=== PATIENT | male | born 1960 | race Caucasian/White ===

== ENCOUNTER 2017-12-28 03:36 | Inpatient (IN) | payer OTHER ==
[~2017-12-28] VITALS: Ht 175.3 cm; Wt 86.2 kg
--- NOTE | ~2017-12-28 | PROC ---
[address] [address] PROCEDURE REPORT Name: BLAKE AMBROCIO Room: [address] IN .R.#: [id number] Admission: 12/28/17 Attend Phys: Kuldip Hyman MD Discharge: 12/29/17 Date of : 64 Report #: [id number] THIS REPORT FOR: //name// For GI report, please see the Provation report in [employer] 7 content. By: [id number] Records Staff KAITLYN /MINERVA
[~2017-12-28 03:36] MED LIST: ACETAMINOPHEN PO; B COMPLEX WITH1 EACH PO; CIPROFLOXACIN500 M1 PO; CYMBALTA60 MG PO; ENDOCET 10-3251 EACH PO; FLEXERIL PO; IBUPROFEN 800800 M1 PO; LAXATIVE5 M1 PO; LOTREL 10-20 M1 EACH PO; LOTREL 5-10 MG1 EACH PO; LOTREL 5-20 MG1 EACH PO; MEDROLDOSEPACK PO; METFORMIN HCL500 MG PO; METHADONE HCL 110 M1 PO; METHADONE HCL5 MG PO; NORCO 5-325 TA1 EACH PO; OXYCODONE HCL PO; OXYCODONE HCL5 M1 PO; OXYCODONE-ACET1 EAC2 PO; PERCOCET 5-3251 EACH PO; SENOKOT-S1 TA1 GT; WELLBUTRIN 75 M75 M1 PO; ZOCOR40 MG PO
[2017-12-28 03:37] VITALS: BP 126/78
[2017-12-28 03:59] LABS: HEMATOCRIT 44.7 % (42.0-52.0); HEMOGLOBIN 14.8 gm/dL (14.0-18.0); MCH 30.8 pg (26.0-34.0); MCHC 33.2 g/dL (28.0-37.0); MCV 92.8 fL (80.0-100.0); MPV 7.6 fl. (7.2-11.1); NUCLEATED RBCS 0 /100WBC; PLATELET COUNT* 279 thou/uL (150-400); RBC 4.82 mil/uL (4.50-6.00); RDW-CV 12.7 % (10.5-14.5); WBC 18.9 thou/uL (4.0-11.0)
[2017-12-28 04:11] LABS: CALCIUM 9.2 mg/dL (8.5-10.1); POTASSIUM 3.9 mmol/L (3.5-5.1)
[2017-12-28 04:21] LABS: ALBUMIN 3.4 g/dL (3.4-5.0); TOTAL BILIRUBIN 0.7 mg/dL (<0.1-1.0); TOTAL PROTEIN 6.6 g/dL (6.4-8.2)
[2017-12-28 05:29] LABS: URINE BILIRUBIN NEGATIVE (Negative); URINE BLOOD NEGATIVE (Negative); URINE CLARITY CLEAR; URINE COLOR YELLOW; URINE GLUCOSE-RANDOM NEGATIVE (Negative); URINE KETONES TRACE (Negative); URINE LEUKOCYTES-REFLEX NEGATIVE (Negative); URINE NITRITE-REFLEX NEGATIVE (Negative); URINE PROTEIN 1+ (Negative); URINE UROBILINOGEN 0.2 E.U./dl (0.2-1.0)
[2017-12-28 06:03] LABS: ABSOLUTE EOSINOPHILS 0.2 thou/uL (0.0-0.7); ABSOLUTE LYMPHOCYTES 1.7 thou/uL (0.8-5.3); ABSOLUTE MONOCYTES 1.1 thou/uL (0.0-1.2); ABSOLUTE NEUTROPHILS 15.9 thou/uL (1.6-8.1); PLATELET ESTIMATE ADEQUATE
[2017-12-28 06:04] LABS: ANISOCYTOSIS 1+; POIKILOCYTOSIS 1+
[2017-12-28 07:54] VITALS: BP 125/78
[2017-12-28 08:00] VITALS: BP 112/64
--- NOTE | 2017-12-28 08:00 | NUR ---
PATIENT ADMITTED TO ROOM 314 VIA CART FROM ER AT 0748. PATIENT'S ASSESMENT, HISTORY, AND VITALS CHARTED. PATIENT STATES PAIN IS IMPROVED FROM EARLIER. IV FLUIDS INFUSING. ORIENTED TO ROOM AND ENVIRONMENT. CALL LIGHT WITHIN REACH. AT BEDSIDE. WILL CONTINUE WITH PLAN OF CARE.
[2017-12-28 10:38] LABS: CALCIUM 9.1 mg/dL (8.5-10.1); POTASSIUM 4.2 mmol/L (3.5-5.1)
--- NOTE | 2017-12-28 10:47 | NUR ---
patients spo2 on room air was 95%, heart rate was 61.
--- NOTE | 2017-12-28 15:05 | EKG ---
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
--- NOTE | 2017-12-28 15:28 | NUR ---
CM SPOKE TO THE PATIENT TO DISCUSS HOME SITUATION, DISCHARGE PLANNING, AND TO INFORM OF THE ROLE OF CM. PATIENT ALERT, ORIENTED, INDEPENDENT AND ACTIVE. PATIENT WORKS. PATIENT RESIDES AT HOME WITH HIS SPOUSE. PATIENT USE 0 DME, AND HAS NO HX OF HH. CM WILL REMAIN AVAILABLE TO ASSIST AND FOLLOW NEEDED.
[2017-12-28 16:14] VITALS: BP 111/55
--- NOTE | 2017-12-28 19:27 | NUR ---
PATIENT HAS BEEN A/O X 4 THIS SHIFT. MEDICATED FOR HEADACHE X 1 THIS SHIFT. IV FLUIDS AND ANTIBIOTICS INFUSING. PATIENT UP WITH SBA. STOOL STUDIES SENT. PLACED IN SPECIAL CONTACT ISOLATION FOR POSSIBLE C DIFF, LAB PENDING. PATIENT TOLERATING CLEAR LIQUIDS. CONSENT SIGNED FOR COLONOSCOPY ON MONDAY. TAKING BOWEL PREP WITH ENCOURAGEMENT. HOURLY ROUNDING COMPLETED. CALL LIGHT WITHIN REACH. WILL CONTINUE WITH PLAN OF CARE.
[2017-12-28 19:35] VITALS: BP 102/46
[2017-12-29 02:07] LABS: GLYCOHEMOGLOBIN (HGB A1C) 6.3 % (4.8-5.6)
[2017-12-29 04:45] LABS: HEMATOCRIT 41.6 % (42.0-52.0); HEMOGLOBIN 13.7 gm/dL (14.0-18.0); MCH 30.8 pg (26.0-34.0); MCHC 32.9 g/dL (28.0-37.0); MCV 93.4 fL (80.0-100.0); MPV 8.3 fl. (7.2-11.1); RBC 4.46 mil/uL (4.50-6.00); RDW-CV 12.5 % (10.5-14.5); WBC 9.7 thou/uL (4.0-11.0)
[2017-12-29 05:05] LABS: CALCIUM 8.2 mg/dL (8.5-10.1); CREATININE 0.9 mg/dL (0.6-1.3); MAGNESIUM 1.9 mg/dL (1.8-2.4); POTASSIUM 4.1 mmol/L (3.5-5.1)
--- NOTE | 2017-12-29 05:15 | NUR ---
PT SLEPT ON AND OFF THIS SHIFT. ASSESSMENT DOCUMENTED. MEDS GIVEN PER E-MAR. IV PATENT, FLUIDS INFUSING. PT REPORTED ABDOMINAL PAIN, PAIN MEDS GIVEN PER E-MAR WITH RELIEF. PT REPORTS STOOLS ARE BECOMING MORE CLEAR FROM BOWEL PREP, BUT NOT OBSERVERED BY STAFF, PT EDUCATED THAT TO SHOW STAFF, PT STATED UNDERSTANDING. PT REMAINED NPO AFTER MIDNIGHT. WILL CONTINUE WITH PLAN OF CARE.
[2017-12-29 08:20] VITALS: BP 129/75
[2017-12-29 10:14] VITALS: BP 129/75
[2017-12-29 13:45] VITALS: BP 124/74
[2017-12-29 18:06] VITALS: BP 129/76
[2017-12-29 19:45] VITALS: BP 124/74
[2017-12-29] MEDS ORDERED: BENTYL 20 MG TA20 M1 PO (19:45)
--- NOTE | 2017-12-29 20:01 | NUR ---
PATIENT RETURNED FROM PACU S/P COLONOSCOPY AT 1806. PER GI REPORT PATIENT CAN BE DISCHARGED HOME AND PATIENT WANTING TO GO HOME. PAGED PHYSICIAN YARD COORDINATOR AND SPOKE WITH DR PEARSON, ORDERS RECEIVED AFTER COLONOSCOPY REPORT GIVNE. PRESRIPTION OF [facility]ETH CALLED INTO PATIENT'S PHARMACY AND SPOKE WITH ANNE MARIE. PATIENT TOLERATED DINNER WITHOUT ANY PAIN OR NAUSEA. IV REMOVED. PATIENT AND SPOUSE GIVEN DISCHARGE INSTRUCTIONS. PATIENT AND VERBALIZED UNDERSTANDING IN REGARDS TO FOLLOW UP APPOINTMENTS AND NEW MEDICATIONS. PATIENT DISCHARGED TO HOME WITH ALL BELONGINGS. AMBULATED OFF NURSING UNIT WITH SPOUSE.
[2018-01-02 19:06] LABS: METANEPHRINE-PL 18 pg/mL (0-62); NORMETANEPHRINE - PL 93 pg/mL (0-145)
--- NOTE | 2018-02-19 14:09 | PATH ---
[facility] [address] [place] [address] PATHOLOGY RPT PROCEDURE Name: CHENTE AMBROCIO Room: [address] IN M.R.#: [id number] Admission: 12/28/17 Date of : 64 Discharge: 12/29/17 Report #: [id number] Path Case #: [id number] [facility] Accession Number: [id number] . 01 Material submitted: . RANDOM COLON BIOPSIES . 01 Clinical history: . Rule out microscopic colitis . 02 Diagnosis: Random colon biopsies: - Hyperplastic lymphoid follicles (Peyer's patches) in otherwise normal colonic mucosa. (JESÚS:pit 01/02/2018) QTP/01/02/2018 . 02 Electronically signed: . Ishmael Barrett MD, Pathologist NPI- [id number] . 01 Gross description: . Received in formalin labeled "Chente Ambrocio, random colon biopsies," are 4 segments of hayward soft tissue measuring 0.8 x 0.6 x 0.2 cm in aggregate dimensions and ranging from 0.3 to 0.4 cm in maximum dimension. The specimen is submitted entirely in cassette A1. (TSD; 12/29/2017) TOB/TOB . 02 Pathologist provided ICD-10: K52.9 . 02 CPT . 625030 Specimen Comment: A courtesy copy of this report has been sent to Specimen Comment: [phone], . Performed at: [address] [facility] [address], [place], [place] [id number] MD Rico Ramsey MD Phone: [phone] Performed at: [address] [facility] [address] [place], [place] [id number] MD Ishmael Barrett MD Phone: [phone]
== END 2017-12-29 20:08 | disposition home or self-care (01) | DRG 872 ==
LOC: M.ERS 03:36 → M.3W 05:52 → M.TBA-ER 05:52 → M.3W 07:50
PROVIDERS: Emergency Medicine; Internal Medicine; ADMIT Internal Medicine
PROC: 0DBE8ZX Excision of Large Intestine, Via Natural or Artificial Opening Endoscopic, Diagnostic (ICD-10-PCS; principal; 2017-12-29)
DX: A41.9 Sepsis, unspecified organism (principal); K50.00 Crohn's disease of small intestine without complications; E27.8 Other specified disorders of adrenal gland; I10 Essential (primary) hypertension; E78.00 Pure hypercholesterolemia, unspecified; E11.9 Type 2 diabetes mellitus without complications; K64.8 Other hemorrhoids; E78.5 Hyperlipidemia, unspecified; Z79.2 Long term (current) use of antibiotics; Z79.899 Other long term (current) drug therapy; Z87.442 Personal history of urinary calculi; Z79.84 Long term (current) use of oral hypoglycemic drugs